=== PATIENT | female | born 1980 | race African-American/Black ===

== ENCOUNTER 2018-07-30 23:16 | Emergency (ER) | payer MEDICAID ==
[~2018-07-30] VITALS: Ht 167.6 cm; Wt 70.0 kg
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
[2018-07-30] MEDS ORDERED: DIPH,PERTUSS(ACELL),TET VAC/PF 0.5 ML IM-VACC ONE ×2 (23:30→23:36)
[2018-07-30] MEDS ORDERED: LIDOCAINE 2%, 20ML SQ ONE (23:30)
[2018-07-30] MEDS ORDERED: LIDOCAINE-MPF 1%, 5ML ONE (23:36)
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
--- NOTE | 2018-07-30 23:49 | NUR ---
Pt refusing any imaging at this time. This rn re-educated pt about importance and pt still refusing. "i just want to leave.... this isnt helping, you arent doing anything for me." This rn talked to pt about process of ed and pt agrees to stay for treatment again.
--- NOTE | 2018-07-30 23:56 | NUR ---
All pt wounds irrigated by mine wedge sawyer at this time.
[2018-07-31] MEDS ORDERED: IBUPROFEN 800 MG TABLET ONE (00:07)
--- NOTE | 2018-07-31 00:09 | NUR ---
Pt requesting medication for pain. Given ibuprofen per md order.
--- NOTE | 2018-07-31 00:11 | NUR ---
Pa at bedside for assessment of wound and numbing w/ lidocaine. Suture supplies staged at bedside.
[2018-07-31] MEDS ORDERED: IBUPROFEN 800 MG TABLET PO ONE (00:30)
[2018-07-31 00:38] VITALS: BP 122/70
--- NOTE | 2018-07-31 00:55 | NUR ---
Pt sleeping comfortably on gurney. Rr even and unlabored. Nadn.
--- NOTE | 2018-07-31 01:02 | NUR ---
Pt states no family or friends in town for her to stay at their house. States no money to stay in a hotel.
[2018-07-31] MEDS ORDERED: BACITRACIN ZINC OINT 500U/GM, 0.9 GM ONE (01:22)
--- NOTE | 2018-07-31 01:32 | NUR ---
Pt sutured and bacitracin applied to all wounds. Md at bedside to consult about potential rabies tx.
[2018-07-31] MEDS ORDERED: OXYcodone/APAP 5/325MG TABLET PO ONE (02:00)
[2018-07-31] MEDS ORDERED: OXYcodone/APAP 5/325MG TABLET ONE (02:13)
== END 2018-07-31 02:35 | disposition home or self-care (01) ==
LOC: ED 07-31 02:17
DX: S71.152A Open bite, left thigh, initial encounter (principal); W54.0XXA Bitten by dog, initial encounter; Y93.89 Activity, other specified; Y92.89 Other specified places as the place of occurrence of the external cause; Y99.8 Other external cause status
CPT/HCPCS: 12032; 90471; 90715; 99285

== ENCOUNTER 2018-10-04 13:51 | Emergency (ER) | payer MEDICAID ==
[~2018-10-04] VITALS: Ht 162.6 cm; Wt 66.5 kg
[2018-10-04 14:07] VITALS: BP 113/71
== END 2018-10-04 15:20 | disposition home or self-care (01) ==
LOC: ED 15:14
DX: L03.116 Cellulitis of left lower limb (principal)
CPT/HCPCS: 99283

== ENCOUNTER 2018-12-09 15:10 | Inpatient (IN) | payer MEDICAID ==
[~2018-12-09] VITALS: Ht 162.6 cm; Wt 62.5 kg
[2018-12-09] MEDS ORDERED: BACL20TA PO (15:32)
--- NOTE | 2018-12-09 15:35 | NUR ---
PT HAS CO AND STATES "I STARTED FAINTING AGAIN. I HAVE MULTIPLE SCLEROSIS. MY HEAD IS KILLING ME. THE LIGHTS ARE HURTING MY EYES". LAST SYNCOPAL EPISODE WAS 30 MIN AGO. FAINTED 7 TIMES OVER THE LAST 3 WEEKS. +NIGHT SWEATS. UNKNOWN FEVERS. STIFF NECK. NAUSEA, VOMITING AFTER EATING. WAITING FOR MD ORDERS
[2018-12-09] MEDS ORDERED: CYCLOBENZAPRINE 10 MG TABLET PO ONE (16:00)
[2018-12-09] MEDS ORDERED: SODIUM CHLORIDE FLUSH 10ML SYR IVF ONE (16:00)
[2018-12-09] MEDS ORDERED: KETOROLAC 30 MG/1 ML IVPush ONE (16:00)
[2018-12-09] MEDS ORDERED: SODIUM CHLORIDE 0.9% 1,000ML IVBOLUS ONE ×2 (16:00→16:30)
[2018-12-09] MEDS ORDERED: KETOROLAC 30 MG/1 ML ONE (16:14)
[2018-12-09] MEDS ORDERED: CYCLOBENZAPRINE 10 MG TABLET ONE (16:14)
[2018-12-09 16:18] LABS: BASOPHILS % (AUTO) 0 % (0-1); EOSINOPHILS % (AUTO) 0 % (1-7); LYMPHOCYTES # (AUTO) 0.78 x10^3/uL (1-3.4); LYMPHOCYTES % (AUTO) 13 % (22-44); MD NO; MEAN CORPUSCULAR HEMOGLOBIN 33.2 pg (27.0-34.8); MEAN CORPUSCULAR HGB CONC 33.2 g/dL (32.4-35.8); MEAN CORPUSCULAR VOLUME 99.9 fL (80-100); MEAN PLATELET VOLUME 7.1 fL (7.4-10.4); MONOCYTES # (AUTO) 0.08 x10^3/uL (0.2-0.8); MONOCYTES % (AUTO) 1 % (2-9); NEUTROPHILS # (AUTO) 5.42 x10^3/uL (1.8-6.8); NEUTROPHILS % (AUTO) 86 % (42-75); PLATELET COUNT 233 x10^3/uL (130-400); RED BLOOD COUNT 3.69 x10^6/uL (3.82-5.3); RED CELL DISTRIBUTION WIDTH 13.1 % (9.6-15.2)
[2018-12-09 16:29] LABS: ALBUMIN 2.9 g/dL (3.4-5.0); ANION GAP 6 mmol/L (5-15); CHLORIDE 109 mmol/L (98-107)
[2018-12-09 16:59] LABS: MICROSCOPIC NOT IND
[2018-12-09 17:01] LABS: CULTURE INDICATED? NO
--- NOTE | 2018-12-09 17:02 | NUR ---
MEDICATED PER ORDERS. VS STABLE. PT IN IMAGING
--- NOTE | 2018-12-09 17:38 | NUR ---
PT BACK IN ROOM. IV FLUIDS INFUSING AT THIS TIME.
--- NOTE | 2018-12-09 18:40 | NUR ---
REPORT TO [facility]
--- NOTE | 2018-12-09 18:47 | NUR ---
PT STABLE FOR TRANSFER. FLUIDS INFUSING.
[2018-12-09 19:27] VITALS: BP 152/89
[2018-12-09] MEDS ORDERED: TEMAZEPAM 15 MG CAPSULE PO PRN (19:30)
[2018-12-09] MEDS ORDERED: ONDANSETRON ODT 4 MG PO PRN (19:30)
[2018-12-09] MEDS ORDERED: POLYETHYLENE GLYCOL 17 GM PACKET PO PRN (19:30)
[2018-12-09] MEDS ORDERED: BISACODYL 10 MG SUPP PR PRN (19:30)
[2018-12-09] MEDS ORDERED: ACETAMINOPHEN 325 MG TABLET PO PRN (19:30)
[2018-12-09] MEDS ORDERED: BUTALB/APAP/CAFFEINE 50MG/325MG/40MG PO ONE (20:30)
[2018-12-09] MEDS: HEPARIN 5,000 UNITS/ML, 1ML SQ SCH (21:03)
[2018-12-09] MEDS: SODIUM CHLORIDE FLUSH 10ML SYR IVF SCH (21:18)
[2018-12-10] VITALS (10 sets, daily range): BP systolic 138–161; BP diastolic 76–107
[2018-12-10] MEDS: HEPARIN 5,000 UNITS/ML, 1ML SQ SCH ×3 (04:27→21:42)
[2018-12-10 05:02] LABS: MEAN CORPUSCULAR HEMOGLOBIN 33.1 pg (27.0-34.8); MEAN CORPUSCULAR HGB CONC 32.8 g/dL (32.4-35.8); MEAN CORPUSCULAR VOLUME 100.8 fL (80-100); MEAN PLATELET VOLUME 7.2 fL (7.4-10.4); PLATELET COUNT 246 x10^3/uL (130-400); RED BLOOD COUNT 3.98 x10^6/uL (3.82-5.3); RED CELL DISTRIBUTION WIDTH 12.8 % (9.6-15.2)
[2018-12-10 05:14] LABS: ALANINE AMINOTRANSFERASE 14 U/L (12-78); ALBUMIN 2.7 g/dL (3.4-5.0); ANION GAP 5 mmol/L (5-15); CALCIUM 8.4 mg/dL (8.5-10.1); CHLORIDE 112 mmol/L (98-107); CREATININE 0.79 mg/dL (0.55-1.02)
[2018-12-10 05:17] LABS: ALKALINE PHOSPHATASE 47 U/L (45-117); BILIRUBIN,TOTAL 0.2 mg/dL (0.2-1.0); TOTAL PROTEIN 5.9 g/dL (6.4-8.2)
[2018-12-10 05:44] LABS: BASOPHILS % (AUTO) 2 % (0-1); EOSINOPHILS % (AUTO) 0 % (1-7); LYMPHOCYTES # (AUTO) 0.58 x10^3/uL (1-3.4); LYMPHOCYTES % (AUTO) 8 % (22-44); MD SCAN; MONOCYTES # (AUTO) 0.02 x10^3/uL (0.2-0.8); MONOCYTES % (AUTO) 0 % (2-9); NEUTROPHILS # (AUTO) 6.24 x10^3/uL (1.8-6.8); NEUTROPHILS % (AUTO) 90 % (42-75)
[2018-12-10] MEDS: SODIUM CHLORIDE FLUSH 10ML SYR IVF SCH ×2 (09:00→21:42)
[2018-12-10 10:07] LABS: SICKLE CELL SCREEN NEGATIVE (NEGATIVE)
[2018-12-10] MEDS: SENNA/DOCUSATE TABLET PO SCH (10:28)
[2018-12-10] MEDS: BACLOFEN 10 MG TABLET PO SCH (10:28)
[2018-12-10] MEDS ORDERED: LABETALOL 5MG/ML, 20ML IVPush SCH (18:00)
[2018-12-10] MEDS: ESCITALOPRAM 10MG TABLET PO SCH (21:42)
[2018-12-10] MEDS: MORPHINE SULFATE 4 MG/ML, 1ML IVPush PRN (21:46)
[2018-12-11 01:20] VITALS: BP 152/99
[2018-12-11] MEDS: HEPARIN 5,000 UNITS/ML, 1ML SQ SCH ×3 (04:51→21:31)
[2018-12-11 06:15] LABS: MEAN CORPUSCULAR HEMOGLOBIN 32.8 pg (27.0-34.8); MEAN CORPUSCULAR HGB CONC 33.1 g/dL (32.4-35.8); MEAN CORPUSCULAR VOLUME 99.3 fL (80-100); MEAN PLATELET VOLUME 7.7 fL (7.4-10.4); PLATELET COUNT 266 x10^3/uL (130-400); RED BLOOD COUNT 3.77 x10^6/uL (3.82-5.3); RED CELL DISTRIBUTION WIDTH 13.1 % (9.6-15.2)
[2018-12-11 06:22] LABS: ALBUMIN 2.8 g/dL (3.4-5.0); ANION GAP 6 mmol/L (5-15); CALCIUM 8.3 mg/dL (8.5-10.1); CHLORIDE 112 mmol/L (98-107); CREATININE 0.83 mg/dL (0.55-1.02)
[2018-12-11 06:54] LABS: BASOPHILS # (AUTO) 0.17 x10^3/uL (0-0.1); BASOPHILS % (AUTO) 2 % (0-1); EOSINOPHILS % (AUTO) 0 % (1-7); LYMPHOCYTES # (AUTO) 0.62 x10^3/uL (1-3.4); LYMPHOCYTES % (AUTO) 6 % (22-44); MD SCAN; MONOCYTES # (AUTO) 0.05 x10^3/uL (0.2-0.8); MONOCYTES % (AUTO) 1 % (2-9); NEUTROPHILS # (AUTO) 9.88 x10^3/uL (1.8-6.8); NEUTROPHILS % (AUTO) 92 % (42-75)
[2018-12-11] MEDS: MORPHINE SULFATE 4 MG/ML, 1ML IVPush PRN ×3 (08:31→17:22)
[2018-12-11] MEDS: SODIUM CHLORIDE FLUSH 10ML SYR IVF SCH ×2 (08:32→21:30)
[2018-12-11] MEDS: SENNA/DOCUSATE TABLET PO SCH (08:32)
[2018-12-11] MEDS: ESCITALOPRAM 10MG TABLET PO SCH (08:32)
[2018-12-11] MEDS: BACLOFEN 10 MG TABLET PO SCH (08:32)
[2018-12-11 09:48] VITALS: BP 162/94
[2018-12-11 14:30] VITALS: BP 163/97
[2018-12-11 19:43] VITALS: BP 155/97
[2018-12-11] MEDS: OXYcodone/APAP 5/325MG TABLET PO PRN (21:30)
[2018-12-12 01:35] VITALS: BP 158/98
[2018-12-12] MEDS: OXYcodone/APAP 5/325MG TABLET PO PRN ×2 (02:45→08:41)
[2018-12-12] MEDS: HEPARIN 5,000 UNITS/ML, 1ML SQ SCH (05:32)
[2018-12-12] MEDS: MORPHINE SULFATE 4 MG/ML, 1ML IVPush PRN (06:41)
[2018-12-12 06:42] VITALS: BP 157/92
[2018-12-12] MEDS: ESCITALOPRAM 10MG TABLET PO SCH (08:40)
[2018-12-12] MEDS: SODIUM CHLORIDE FLUSH 10ML SYR IVF SCH (08:41)
[2018-12-12] MEDS: BACLOFEN 10 MG TABLET PO SCH (08:41)
[2018-12-12] MEDS: SENNA/DOCUSATE TABLET PO SCH (08:41)
[2018-12-12] MEDS ORDERED: ONDA4TAB13 PO (09:36)
[2018-12-12] MEDS ORDERED: ACET325T26 PO (09:36)
[2018-12-12] MEDS ORDERED: ESCI10TA PO (09:36)
[2018-12-12] MEDS ORDERED: PRED20TA PO (09:40)
== END 2018-12-12 10:49 | disposition home or self-care (01) | DRG 60 ==
LOC: ED 16:30 → EDIP 18:08 → 4WST 19:14 → DCLOUNGE 12-12 10:35
PROVIDERS: ADMIT Family Medicine; ATTEND Family Medicine
DX: G35 Multiple sclerosis (principal); R55 Syncope and collapse; G81.94 Hemiplegia, unspecified affecting left nondominant side; F32.9 Major depressive disorder, single episode, unspecified; F12.90 Cannabis use, unspecified, uncomplicated; F43.10 Post-traumatic stress disorder, unspecified; F90.9 Attention-deficit hyperactivity disorder, unspecified type; I10 Essential (primary) hypertension; Z90.711 Acquired absence of uterus with remaining cervical stump; Z88.0 Allergy status to penicillin; Z91.018 Allergy to other foods; F41.9 Anxiety disorder, unspecified
CPT/HCPCS: 0399T; 36415; 70450; 71045; 80048; 80053; 80069; 81003; 82040; 83735; 84703; 85025; 85660; 93005; 93306; 93880; 96361; 96365; 96375; G0378; J1644; J1885; J2930; J2270; J7030